=== PATIENT | male | born 1970 | race African-American/Black ===

== ENCOUNTER 2019-06-27 05:05 | Emergency (ER) | payer SELFPAY ==
[~2019-06-27] VITALS: Ht 177.8 cm; Wt 60.0 kg
[2019-06-27 05:17] VITALS: BP 109/76
== END 2019-06-27 06:06 | disposition home or self-care (01) ==
LOC: ED 05:21
DX: G44.009 Cluster headache syndrome, unspecified, not intractable (principal); G44.039 Episodic paroxysmal hemicrania, not intractable; Z87.891 Personal history of nicotine dependence
CPT/HCPCS: 99283; J7512